=== PATIENT | male | born 1960 | race Caucasian/White ===

== ENCOUNTER 2021-06-29 05:46 | Observation (INO) ==
[~2021-06-29 05:46] MED LIST: ceFAZolin 2 GM in NS PREMIX 2 GM/100 ML BAG IVPB ONE
[2021-06-29] MEDS ORDERED: Buffered Lidocaine 1% SYRIN 1 ml INTRADERM ONE (06:00)
[2021-06-29] MEDS ORDERED: Lactated Ringers 1000 ml BAG 1,000 ML IV SCH (06:00)
[2021-06-29] MEDS ORDERED: Lidocaine 1% w EPI 1:200,000 SDV 30 ML VIAL ONE (06:58)
[2021-06-29] MEDS ORDERED: Bupivacaine 0.25% SDV PF 10 ML VIAL INJ ONE (06:59)
[2021-06-29] MEDS ORDERED: Vancomycin 1,000 MG VIAL ONE (06:59)
[2021-06-29] MEDS ORDERED: Midazolam 2 mg/2 ml VIAL 1 mg/ml 2 ml VIAL (2 mg) ONE (07:24)
[2021-06-29] MEDS ORDERED: fentaNYL 100 mcg/2 ml 50 MCG/ML VIAL ONE (07:24)
[2021-06-29] MEDS ORDERED: Lidocaine 2% PF 5 ML VIAL ONE (07:44)
[2021-06-29] MEDS ORDERED: Propofol 10 MG/ML 20 ML BTL ONE ×4 (08:34→09:41)
[2021-06-29] MEDS ORDERED: Ondansetron 4 mg VIAL 2 MG/ML 2 ml VIAL ONE (09:06)
[2021-06-29] MEDS ORDERED: Naloxone 0.4 mg VIAL 0.4 mg/ml 1 ml VIAL IV PRN (10:23)
[2021-06-29] MEDS ORDERED: Prochlorperazine 5 mg/ml 2 ml VIAL (10 mg) IV PRN (10:23)
[2021-06-29] MEDS ORDERED: Ondansetron ODT 4 mg TAB 4 MG TAB PO PRN (10:26)
[2021-06-29] MEDS ORDERED: Ondansetron 4 mg VIAL 2 MG/ML 2 ml VIAL IV PRN (10:26)
[2021-06-29] MEDS ORDERED: Magnesium Hydroxide LIQ 30 ML UDC PO PRN (10:26)
[2021-06-29] MEDS ORDERED: diPHENhydraMINE 25 mg TAB PO PRN (10:26)
[2021-06-29] MEDS ORDERED: diPHENhydraMINE IV 50 MG/ML 1 ml VIAL (BENADRYL) IV PRN (10:26)
[2021-06-29] MEDS ORDERED: Lactulose 30 ml UDC PO PRN (10:26)
[2021-06-29] MEDS ORDERED: Morphine 2 MG/ML SYRINGE IV PRN (10:26)
[2021-06-29] MEDS ORDERED: Dextrose 50% Syringe 50 ml 25 GM/50 ML SYRINGE IV PUSH PRN (10:42)
[2021-06-29] MEDS ORDERED: HYDROmorphone 1 MG/1 ML SYRINGE ONE (10:52)
[2021-06-29] MEDS: HYDROmorphone 1 MG/1 ML SYRINGE IV PRN ×2 (10:54→11:15)
[2021-06-29] MEDS ORDERED: ceFAZolin 1 GM ADVAN 1 GM in NS 0.9% 50 ML 50 ML IVPB SCH ×2 (11:00→16:00)
[2021-06-29] MEDS: D5W 1/2 NS 1000 ml BAG 1,000 ML IV SCH ×2 (13:15→23:54)
[2021-06-29] MEDS: ceFAZolin VIAL 1 GM in NS 0.9% 50 ML 50 ML IVPB SCH (16:44)
[2021-06-29] MEDS ORDERED: Insulin GLARGINE 100 un/ml 10 ml VIAL SUBCUT SCH (21:00)
[2021-06-29] MEDS ORDERED: INSULIN DETEMIR U SUBCUT SCH (21:00)
[2021-06-29] MEDS ORDERED: [UNRECOGNIZED DRUG - OTHER] SUBCUT SCH (21:00)
[2021-06-29] MEDS: Magnesium Hydroxide LIQ 30 ML UDC PO SCH (21:10)
[2021-06-30] MEDS: ceFAZolin VIAL 1 GM in NS 0.9% 50 ML 50 ML IVPB SCH ×2 (01:03→07:56)
[2021-06-30 05:54] LABS: Hematocrit 34 % (42-52); Mean Platelet Volume 7.7 fL (7.4-10.4); Platelet Count 174 10^3/uL (150-450)
[2021-06-30 06:27] LABS: Calcium 8.2 mg/dL (8.6-10.3); Potassium 4.1 mmol/L (3.5-5.0); eGFR CKD-EPI 106.6 (>60)
[2021-06-30] MEDS: Magnesium Hydroxide LIQ 30 ML UDC PO SCH (08:11)
[2021-06-30] MEDS ORDERED: Vitamin THERAPEUTIC TAB PO SCH (09:00)
[2021-06-30] MEDS ORDERED: ceFAZolin 1 GM ADVAN 1 GM in NS 0.9% 50 ML 50 ML IVPB SCH (09:00)
[2021-06-30 15:48] VITALS: BP 115/76
[2021-06-30] MEDS ORDERED: ceFAZolin VIAL 1 GM in NS 0.9% 50 ML 50 ML IVPB SCH (16:00)
[2021-06-30] MEDS ORDERED: ceFAZolin 1 GM in Dextrose 1 GM/50 ML BAG IV SCH (16:00)
[2021-06-30 17:24] LABS: Urine Appearance Clear; Urine Bilirubin Negative (Negative); Urine Blood 1+ (Negative); Urine Color Yellow; Urine Glucose 3+(>=500 mg/dL) (Negative); Urine Ketones Trace (Negative); Urine Nitrite Negative (Negative); Urine Protein Negative (Negative); Urine Specific Gravity 1.032 (1.002-1.030); Urine Urobilinogen Negative (Negative)
[2021-06-30 17:32] LABS: Urine Bacteria Absent (Absent); Urine Red Blood Cell Trace(0-2/hpf) (Absent); Urine Squamous Epithelial Cell Present (Absent); Urine White Blood Cell Absent (Absent)
== END 2021-06-30 17:20 | disposition home or self-care (01) ==
LOC: OR 05:46 → SSU 05:46
PROVIDERS: ADMIT Orthopaedic Surgery; ATTEND Orthopaedic Surgery

== ENCOUNTER 2023-08-16 09:46 | Observation (INO) ==
[~2023-08-16 09:46] MED LIST changes: +Naloxone 0.4 mg VIAL 0.4 mg/ml 1 ml VIAL IV PRN; +Ondansetron 4 mg VIAL 2 MG/ML 2 ml VIAL IV PRN; -ceFAZolin 2 GM in NS PREMIX 2 GM/100 ML BAG IVPB ONE; +fentaNYL 100 mcg/2 ml 50 MCG/ML VIAL IV PRN
[2023-08-16] MEDS ORDERED: ROPIVACAINE 5 MG/ML 30 ML BTL (0.5%) ONE ×2 (10:30→12:30)
[2023-08-16] MEDS ORDERED: Midazolam 5 mg/5 ml VIAL 1 mg/ml 5 ml VIAL (5 mg) ONE (10:30)
[2023-08-16] MEDS ORDERED: Dexamethasone IV 4 MG/ML VIAL 1 ml VIAL ONE ×2 (10:30→13:52)
[2023-08-16] MEDS ORDERED: Propofol 10 MG/ML 20 ML BTL ONE ×2 (10:33→12:38)
[2023-08-16] MEDS ORDERED: Tranexamic Acid 1 GM/100ML BAG 2,000 MG/200 ML BAG IV ONE (10:56)
[2023-08-16] MEDS ORDERED: ceFAZolin 2 GM PREMIX 2 GM/50 ML BAG ONE (10:56)
[2023-08-16] MEDS ORDERED: Buffered Lidocaine 1% SYRIN 1 ml ONE (10:56)
[2023-08-16 11:17] LABS: Rapid COVID-19 Molecular Undetected (Undetected)
[2023-08-16] MEDS ORDERED: Ondansetron 4 mg VIAL 2 MG/ML 2 ml VIAL IV PRN (12:25)
[2023-08-16] MEDS ORDERED: Ondansetron ODT 4 mg TAB 4 MG TAB PO PRN (12:25)
[2023-08-16] MEDS ORDERED: Calcium Carb (TUMS) 500 mg CHEW TAB PO PRN (12:25)
[2023-08-16] MEDS ORDERED: Lactulose 30 ml UDC PO PRN (12:25)
[2023-08-16] MEDS ORDERED: Magnesium Hydroxide LIQ 30 ML UDC PO PRN (12:25)
[2023-08-16] MEDS ORDERED: Morphine 2 MG/ML SYRINGE IV PRN (12:25)
[2023-08-16] MEDS ORDERED: Rocuronium 50 mg VIAL 10 mg/ml 5 ml VIAL (50 mg) ONE (12:38)
[2023-08-16] MEDS ORDERED: ceFAZolin 2 GM in NS PREMIX 2 GM/100 ML BAG IVPB SCH (13:00)
[2023-08-16] MEDS ORDERED: fentaNYL 100 mcg/2 ml 50 MCG/ML VIAL ONE (13:51)
[2023-08-16] MEDS ORDERED: Ondansetron 4 mg VIAL 2 MG/ML 2 ml VIAL ONE (13:52)
[2023-08-16] MEDS ORDERED: Esmolol 10 MG/ML 10 ML (100 mg) IV ONE (15:55)
[2023-08-16] MEDS ORDERED: Dextrose 50% Syringe 50 ml 25 GM/50 ML SYRINGE IV PUSH PRN ×2 (18:32→20:41)
[2023-08-16] MEDS: Buffered Lidocaine 1% SYRIN 1 ml INTRADERM ONE (21:27)
[2023-08-16] MEDS: Lactated Ringers 1000 ml BAG 1,000 ML IV SCH (21:27)
[2023-08-16] MEDS: Magnesium Hydroxide LIQ 30 ML UDC PO SCH (21:30)
[2023-08-16] MEDS: ceFAZolin 2 GM/50 ML BAG IV SCH (21:34)
[2023-08-17 06:30] LABS: Hematocrit 37.4 % (38-53); Hemoglobin 12.8 g/dL (13.2-16.3); Mean Platelet Volume 7.5 fL (7.5-11.2); Platelet Count 201 10^3/uL (150-450)
[2023-08-17] MEDS: Vitamin THERAPEUTIC TAB PO SCH (08:27)
[2023-08-17] MEDS: Aspirin EC 81 mg TAB.EC (enteric coated) PO SCH (08:27)
[2023-08-17] MEDS: Pneumococcal 20-Valent Conj 0.5 ML SYR Vaccine IM ONE (08:29)
[2023-08-17] MEDS: Lactated Ringers 1000 ml BAG 1,000 ML IV SCH (08:36)
[2023-08-17 09:00] LABS: Calcium 8.6 mg/dL (8.6-10.3); Creatinine, Serum 0.69 mg/dL (0.67-1.17); Potassium 4.4 mmol/L (3.5-5.0); eGFR CKD-EPI 105.3 (>60)
[2023-08-17 10:35] VITALS: BP 126/84
[2023-08-17] MEDS: Insulin GLARGINE 100 un/ml 10 ml VIAL SUBCUT ONE (12:44)
[2023-08-17] MEDS ORDERED: Insulin GLARGINE 100 un/ml 10 ml VIAL SUBCUT SCH (21:00)
== END 2023-08-17 16:10 | disposition home or self-care (01) ==
LOC: OR 09:46 → SSU 09:46
PROVIDERS: ADMIT Orthopaedic Surgery Adult Reconstructive Orthopaedic Surgery; ATTEND Orthopaedic Surgery Adult Reconstructive Orthopaedic Surgery